=== PATIENT | male | born 1975 | race Caucasian/White ===

== ENCOUNTER 2017-06-15 14:19 | Emergency (ER) | payer MEDICAID, OTHER ==
[~2017-06-15] VITALS: Ht 172.7 cm; Wt 111.1 kg
[2017-06-15] MEDS ORDERED: KETOROLAC TROMETHAMINE INJ 30 MG/ML VIAL ONE (14:37)
[2017-06-15] MEDS ORDERED: ONDANSETRON 4 MG TAB.RAPDIS ONE (14:38)
[2017-06-15] MEDS ORDERED: HYDROCODONE/APAP 10/325MG 1 EA TABLET ONE (14:38)
[2017-06-15] MEDS ORDERED: predniSONE 10 MG TABLET ONE (14:38)
[2017-06-15 14:43] VITALS: BP 146/98
--- NOTE | 2017-06-15 14:56 | NUR ---
PO MEDS GIVEN NORCO, ZOFRAN AND PREDNISONE AND TORADOL IM RT DELTOID. DEPARTED PT PRIOR MARKING MEDS
[2017-06-15] MEDS ORDERED: ONDANSETRON 4 MG TAB.RAPDIS SL ONE (15:00)
[2017-06-15] MEDS ORDERED: KETOROLAC TROMETHAMINE INJ 60 MG/2 ML VIAL IM ONE (15:00)
[2017-06-15] MEDS ORDERED: predniSONE 10 MG TABLET PO ONE (15:00)
[2017-06-15] MEDS ORDERED: HYDROCODONE/APAP 10/325MG 1 EA TABLET PO ONE (15:00)
== END 2017-06-15 14:49 | disposition home or self-care (01) ==
LOC: ER 14:20
DX: M10.9 Gout, unspecified (principal); F17.200 Nicotine dependence, unspecified, uncomplicated; Z94.7 Corneal transplant status
CPT/HCPCS: 96372; 99283; A4606; J1885; J7512; Q0162; Z7610

== ENCOUNTER 2018-03-25 03:59 | Emergency (ER) | payer OTHER ==
[~2018-03-25] VITALS: Ht 172.7 cm; Wt 113.4 kg
--- NOTE | 2018-03-25 03:59 | NUR ---
BB SELF; "WOUND IN PELVIC AREA" PAIN 05/07 VSS NAD A/OX4. WILL CONTINUE TO MONITOR FOR ANY CHANGES DURING THE SHIFT.
[2018-03-25 04:12] VITALS: BP 153/103
--- NOTE | 2018-03-25 05:07 | NUR ---
PATIENT STATES HE IS IN A HURRY TO GET TO WORK AND ONLY WANT HIS RX, HE DOESNT WANT TO WAIT FOR HIS ER MEDICATION. PATIENT THEN LEFT [facility] WITH RX MEDICATION
[2018-03-25] MEDS ORDERED: CLINDAMYCIN HCL 150 MG CAPSULE PO ONE (05:30)
== END 2018-03-25 05:04 | disposition home or self-care (01) ==
LOC: ER 03:59
DX: L73.9 Follicular disorder, unspecified (principal); L03.317 Cellulitis of buttock; M10.9 Gout, unspecified; F10.10 Alcohol abuse, uncomplicated; I10 Essential (primary) hypertension; F17.200 Nicotine dependence, unspecified, uncomplicated; Z94.7 Corneal transplant status
CPT/HCPCS: A4606; Z7610